=== PATIENT | female | born 1995 | race Caucasian/White ===

== ENCOUNTER 2018-10-06 17:43 | Emergency (ER) | payer BC ==
[2018-10-06 18:40] LABS: ABS Basophils 0 10^3/ul (0-0.2); ABS Eosinophils 0 10^3/ul (0-0.6); ABS Lymphocytes 2.2 10^3/ul (1.0-4.8); ABS Monocytes 0.5 10^3/ul (0-0.8); ABS Neutrophils 5.4 10^3/ul (1.5-7.7); ABS Nucleated RBC 0 10^3/ul; Eosinophil % 0.5 % (0-6); Hematocrit 33 % (35-47); Lymphocyte % 26.9 % (25-47); Mean Corpuscular HGB Conc 33 g/dl (31-36); Mean Corpuscular Hemoglobin 27 pg (27-31); Mean Corpuscular Volume 81 fL (80-97); Mean Platelet Volume 6.7 fL (7.4-10.4); Nucleated Red Blood Cells % 0; Platelet Count 373 10^3/ul (150-450); Red Blood Count 4.08 10^6/ul (4.00-5.40); Red Cell Distribution Width 15 % (10.5-15); White Blood Count 8.2 10^3/ul (3.5-10.8)
[2018-10-06 18:55] LABS: EGFR Non-African American 123.8 (>60)
--- NOTE | 2018-10-06 19:39 | ED ---
- HPI Summary HPI Summary: A 22 y/o female presents to the ED on 10/06/2018 because [facility] showed [facility] . Her LNMP was on 08/21/2018. She also c/o minor abd pain but denies any other pain. - History of Current Complaint Chief Complaint: EDOBProblems Stated Complaint: OB ISSUE Time Seen by Provider: 10/06/18 19:11 Hx Obtained From: Patient Severity: Mild Current Severity: Mild Pain Intensity: 2 - out of 10 - Allergies/Home Medications Allergies/Adverse Reactions: Allergies Allergy/AdvReac Type Severity Reaction Status Date / Time No Known Allergies Allergy Verified 10/06/18 17:46 PMH/Surg Hx/FS Hx/Imm Hx Endocrine/Hematology History: Denies: Hx Diabetes Cardiovascular History: Denies: Hx Hypertension Infectious Disease History: No Infectious Disease History: Denies: Traveled Outside the [place] in Last 30 Days - Family History Known Family History: Negative: Hypertension, Diabetes Review of Systems Positive: Abdominal Pain Positive: other - Positive: US shows ectopic All Other Systems Reviewed And Are Negative: Yes Physical Exam - Summary Physical Exam Summary: Appearance: The patient is well-nourished in no acute distress and in no acute pain. Skin: The skin is warm and dry and skin color reflects adequate perfusion. HEENT: The head is normocephalic and atraumatic. The pupils are equal and reactive. The conjunctivae are clear and without drainage. Nares are patent and without drainage. Mouth reveals moist mucous membranes and the throat is without erythema and exudate. The external ears are intact. The ear canals are patent and without drainage. The tympanic membranes are intact. Neck: The neck is supple with full range of motion and non-tender. There are no carotid bruits. There is no neck vein distension. Respiratory: Chest is non-tender. Lungs are clear to auscultation and breath sounds are symmetrical and equal. Cardiovascular: Heart is regular rate and rhythm. There is no murmur or rub auscultated. There is no peripheral edema and pulses are symmetrical and equal. Abdomen: The abdomen is soft and non-tender. There are normal bowel sounds heard in all four quadrants and there is no organomegaly palpated. Musculoskeletal: There is no back tenderness noted. Extremities are non-tender with full range of motion. There is good capillary refill. There is no peripheral edema or calf tenderness elicited. Neurological: Patient is alert and oriented to person, place and time. The patient has symmetrical motor strength in all four extremities. Cranial nerves are grossly intact. Deep tendon reflexes are symmetrical and equal in all four extremities. Psychiatric: The patient has an appropriate affect and does not exhibit any anxiety or depression. - Physical Exam Triage Information Reviewed: Yes Vital Signs Reviewed: Yes Diagnostics - Vital Signs Vital Signs Temp Pulse Resp BP Pulse Ox 10/06/18 17:44 98.4 F 104 18 125/88 98 - Laboratory Lab Results: Lab Results 10/06/18 10/06/18 10/06/18 Range/Units 18:18 18:18 18:18 WBC 8.2 (3.5-10.8) 10^3/ul RBC 4.08 (4.00-5.40) 10^6/ul Hgb 11.0 L (12.0-16.0) g/dl Hct 33 L (35-47) % MCV 81 (80-97) fL MCH 27 (27-31) pg MCHC 33 (31-36) g/dl RDW 15 (10.5-15) % Plt Count 373 (150-450) 10^3/ul MPV 6.7 L (7.4-10.4) fL Neut % (Auto) 66.3 (38-83) % Lymph % (Auto) 26.9 (25-47) % [place] % (Auto) 5.9 (0-7) % Eos % (Auto) 0.5 (0-6) % Baso % (Auto) 0.4 (0-2) % Absolute Neuts (auto) 5.4 (1.5-7.7) 10^3/ul Absolute Lymphs (auto) 2.2 (1.0-4.8) 10^3/ul Absolute Monos (auto) 0.5 (0-0.8) 10^3/ul Absolute Eos (auto) 0 (0-0.6) 10^3/ul Absolute Basos (auto) 0 (0-0.2) 10^3/ul Absolute Nucleated RBC 0 10^3/ul Nucleated RBC % 0 Sodium 137 (135-145) mmol/L Potassium 4.0 (3.5-5.0) mmol/L Chloride 105 (101-111) mmol/L Carbon Dioxide 23 (22-32) mmol/L Anion Gap 9 (2-11) mmol/L BUN 7 (6-24) mg/dL Creatinine 0.61 (0.51-0.95) mg/dL Est GFR ( Amer) 149.8 (>60) Est GFR (Non-Af Amer) 123.8 (>60) BUN/Creatinine Ratio 11.5 (8-20) Glucose 105 H (70-100) mg/dL Calcium 9.6 (8.6-10.3) mg/dL Total Bilirubin 0.30 (0.2-1.0) mg/dL AST 15 (13-39) U/L ALT 12 (7-52) U/L Alkaline Phosphatase 41 (34-104) U/L Total Protein 7.3 (6.4-8.9) g/dL Albumin 4.4 (3.2-5.2) g/dL Globulin 2.9 (2-4) g/dL Albumin/Globulin Ratio 1.5 (1-3) Beta HCG, Quant 7969.00 mIU/mL Blood Type A Positive Antibody Screen Negative Result Diagrams: 10/06/18 18:18 10/06/18 18:18 Lab Statement: Any lab studies that have been ordered have been reviewed, and results considered in the medical decision making process. Re-Evaluation - Re-Evaluation First Eval Re-Evaluation Time: 21:20 Change: Unchanged Comment: Informed the patient that we are waiting on the US reading. Course/Dx - Course Course Of Treatment: Her hCG returned about 8000. Dr. Gonzalez was contacted and was in the operating room. When he was finished with his surgery he came to the department, evaluated the ultrasound and spoke with the patient. Decision was made to treat with methotrexate and a type and screen was added in case she would need Rhogam. He will follow with her in the office on Saturday. - Diagnoses Provider Diagnoses: Cornual - Provider Notifications Discussed Care Of Patient With: Nicholas Jensen Time Discussed With Above Provider: 19:35 Instructed by Provider To: Other - States that he will review the patient's US. At 21:30 he reviewed the US and stated that it is likely a cornual . At 21:35 he saw the patient in the ED. At 21:45 he states that she should be discharged home and follow up with him on 10/10/2018. Discharge - Sign-Out/Discharge Documenting (check all that apply): Patient Departure - DC - Discharge Plan Condition: Stable Disposition: HOME Prescriptions: oxyCODONE/Acetamin 5/325 MG* [Percocet 5/325 TAB*] 1 tab PO Q6H PRN #20 tab MDD 4 PRN Reason: Pain Patient Education Materials: Ectopic (DC) Referrals: Milind Blake DO [Primary Care Provider] - (2-3 days) Nicholas Jensen MD [Medical Doctor] - Additional Instructions: Follow up with Dr. Jensen on 10/10/2018. Return to the ED if you experience any new or worsening symptoms. - Billing Disposition and Condition Condition: STABLE Disposition: Home - Attestation Statements Document Initiated by Lizetteibizzy: Yes Documenting Scribe: Shiraz Sarmiento Provider For Whom Denzel is Documenting (Include Credential): Wilbur Bucio MD Scribe Attestation: IShiraz, scribed for Wilbur Bucio MD on 10/06/18 at 2201. Scribe Documentation Reviewed: Yes Provider Attestation: The documentation as recorded by the Shiraz ramos accurately reflects the service I personally performed and the decisions made by me, Wilbur Bucio MD
[2018-10-06 21:25] LABS: Urine Appearance Clear; Urine Blood Negative (Negative); Urine Color Yellow; Urine Ketones 1+ (Negative); Urine Protein Negative (Negative); Urine Specific Gravity 1.016 (1.010-1.030); Urine Urobilinogen Negative (Negative)
[2018-10-06] MEDS ORDERED: Methotrexate* 25 MG/ML 2 ML VIAL IM ONE (22:00)
[2018-10-06 22:06] VITALS: BP 117/94
--- NOTE | 2018-10-06 22:54 | PN ---
Progress Note - Progress Note Date of Service: 10/06/18 Note: called by er reviewed pt here [facility] medical [facility]. Ultrasound there was suspicious for a cornual ectopic . ultrasound here is also suspicious . is in the cornual area with 5mm of thickness between and the serosal surface. d/w pt and partner. Explained it may be difficuot to make a definitive diagnosis. Recommend methotrexate to arrest . this should work no matter of location. BSU is 8000. no heartbeat yet. Explained ectopic warnings and expectations with methotrexate rx. Importance of close follow up. avoid folic acid pt understands it 87% effective and may fail 13% of time. Understands after rx with methotrexate she by no means should continue with a if itdoes not work. Explained repeat doses if it p[lateaus or cornual resection or rupture. explained D&C may be an option for diagnosis and treatment. Questions answerd pt is to call my office tomorrow for an appt Saturday Francisco Jensen MD
== END 2018-10-06 23:27 | disposition home or self-care (01) ==
LOC: ED 17:43
DX: O00.80 Other ectopic pregnancy without intrauterine pregnancy (principal)
CPT/HCPCS: 36415; 80053; 81003; 84702; 85025; 86850; 86900; 86901; 96372; 99283; J9250

== ENCOUNTER 2020-08-26 14:44 | Inpatient (IN) ==
[2020-08-26] MEDS ORDERED: Lactated Ringers 1000 ml BAG 1,000 ML IV ONE ×2 (15:53→21:32)
[2020-08-26] MEDS ORDERED: Lactated Ringers 1000 ml BAG 1,000 ML IV SCH ×2 (16:00→22:00)
[2020-08-26 16:28] LABS: ABS Lymphocytes 2.4 10^3/ul (1.0-4.8); ABS Monocytes 0.6 10^3/ul (0-0.8); ABS Neutrophils 8.5 10^3/ul (1.5-7.7); Eosinophil % 0.2 %; Hematocrit 33 % (35-47); Hemoglobin 11.4 g/dL (12.0-16.0); Lymphocyte % 20.6 %; Mean Corpuscular HGB Conc 34 g/dL (31-36); Mean Corpuscular Hemoglobin 29 pg (27-31); Mean Corpuscular Volume 83 fL (80-97); Mean Platelet Volume 7.7 fL (7.4-10.4); Platelet Count 285 10^3/uL (150-450); Red Cell Distribution Width 14 % (10-15); White Blood Count 11.5 10^3/uL (3.5-10.8)
[2020-08-26 16:47] LABS: Albumin 3.5 g/dL (3.2-5.2); Albumin/Globulin Ratio 1.3 (1-3); Calcium 8.6 mg/dL (8.6-10.3); Globulin 2.7 g/dL (2-4); Potassium 4.2 mmol/L (3.5-5.0); Total Bilirubin 0.3 mg/dL (0.2-1.0); Total Protein 6.2 g/dL (6.4-8.9); Uric Acid 5.1 mg/dL (2.3-6.6)
[2020-08-26 16:52] LABS: Urine Benzodiazepine Screen None Detected (None Detect); Urine Cannabinoids Screen None Detected (None Detect); Urine Opiates Screen None Detected (None Detect)
[2020-08-26 16:59] LABS: Urine Appearance Clear; Urine Bilirubin Negative (Negative); Urine Blood Negative (Negative); Urine Color Straw; Urine Glucose Negative (Negative); Urine Ketones Negative (Negative); Urine Nitrite Negative (Negative); Urine Protein Negative (Negative); Urine Specific Gravity 1.008 (1.010-1.030); Urine Urobilinogen Negative (Negative)
[2020-08-26] MEDS ORDERED: Oxytocin in LR 20 UNITS/1,000 ML BAG IVPB SCH (17:00)
[2020-08-26] MEDS ORDERED: OBEPIDURAL 250 ML EPIDURAL ONE (20:38)
[2020-08-26] MEDS ORDERED: Bupivacaine 0.25% SDV PF 10 ML VIAL INJ ONE (20:48)
[2020-08-26] MEDS ORDERED: Phenylephrine 40 mcg/mL 10mL (400mcg) SYRINGE IV PUSH PRN ×2 (21:32)
[2020-08-26] MEDS ORDERED: Sodium Citrate/Citric Acid LIQ 15 ML UDC PO PRN (21:32)
[2020-08-26] MEDS ORDERED: EPHEDrine (Pressors) 50 MG/ML VIAL IV PUSH PRN ×2 (21:32)
[2020-08-26] MEDS ORDERED: Lactated Ringers 1000 ml BAG 500 ML IV PRN ×2 (21:32)
[2020-08-26] MEDS ORDERED: OBEPIDURAL 250 ML EPIDURAL SCH (22:00)
[2020-08-27] MEDS ORDERED: Glycerin ADULT 2.4 gm SUPP PR PRN (04:48)
[2020-08-27] MEDS ORDERED: Witch Hazel PAD JAR TOPICAL PRN (04:48)
[2020-08-27] MEDS ORDERED: Dibucaine 1% OINT 28.35 GM TUBE PR PRN (04:48)
[2020-08-27] MEDS ORDERED: Lactated Ringers 1000 ml BAG 1,000 ML IV SCH (05:00)
[2020-08-27] MEDS ORDERED: Oxytocin in LR 20 UNITS/1,000 ML BAG IVPB SCH (05:00)
[2020-08-28 06:43] LABS: ABS Basophils 0.1 10^3/ul (0-0.2); ABS Eosinophils 0.1 10^3/ul (0-0.6); ABS Lymphocytes 2.4 10^3/ul (1.0-4.8); ABS Monocytes 0.7 10^3/ul (0-0.8); Eosinophil % 0.8 %; Hematocrit 28 % (35-47); Hemoglobin 9.7 g/dL (12.0-16.0); Lymphocyte % 21.4 %; Mean Corpuscular HGB Conc 35 g/dL (31-36); Mean Corpuscular Hemoglobin 29 pg (27-31); Mean Corpuscular Volume 84 fL (80-97); Mean Platelet Volume 7.2 fL (7.4-10.4); Platelet Count 191 10^3/uL (150-450); Red Blood Count 3.31 10^6 /uL (3.70-4.87); Red Cell Distribution Width 14 % (10-15); White Blood Count 11.2 10^3/uL (3.5-10.8)
[2020-08-29 08:10] VITALS: BP 120/71
== END 2020-08-29 11:49 | disposition home or self-care (01) | DRG 560 ==
LOC: MCHOBOUT 14:44 → MCHOB 15:53
PROVIDERS: ADMIT Midwife; ATTEND Midwife